=== PATIENT | male | born 2000 | race African-American/Black ===

== ENCOUNTER 2022-05-25 11:06 | Emergency (ER) | payer MEDICAID, SELFPAY | END 2022-05-25 11:30 | disposition home or self-care (01) | LOC: NAV ERS 11:06 | DX: L03.211 Cellulitis of face (principal) | CPT/HCPCS: 99283 ==

== ENCOUNTER 2022-06-24 14:36 | Emergency (ER) | payer MEDICAID | END 2022-06-24 15:04 | disposition home or self-care (01) | LOC: NAV ERS 14:36 | DX: J02.9 Acute pharyngitis, unspecified (principal) | CPT/HCPCS: 99283 ==

== ENCOUNTER 2023-03-04 10:18 | Emergency (ER) | payer MEDICAID | END 2023-03-04 12:10 | disposition home or self-care (01) | LOC: NAV ERS 10:18 | DX: K52.9 Noninfective gastroenteritis and colitis, unspecified (principal) | CPT/HCPCS: 99283 ==

== ENCOUNTER 2023-06-01 17:28 | Emergency (ER) | payer MEDICAID, SELFPAY | END 2023-06-01 17:46 | disposition home or self-care (01) | LOC: NAV ERS 17:28 | DX: J06.9 Acute upper respiratory infection, unspecified (principal); F17.290 Nicotine dependence, other tobacco product, uncomplicated | CPT/HCPCS: 99283 ==